=== PATIENT | male | born 1985 | race Hispanic/Latino ===

== ENCOUNTER 2019-09-26 13:00 | Emergency (ER) | payer OTHER ==
[2019-09-26] MEDS ORDERED: KETOROLAC TROMETHAMINE 60 MG/2 ML VIAL ONE (13:33)
[2019-09-26] MEDS ORDERED: CYCLOBENZAPRINE HCL 10 MG TABLET ONE (13:33)
[2019-09-26] MEDS ORDERED: LIDOCAINE 5% TOPICAL PATCH TP ONE (13:38)
== END 2019-09-26 14:42 | disposition home or self-care (01) ==
LOC: EDH 13:00
DX: M62.830 Muscle spasm of back (principal); R05 Cough
CPT/HCPCS: 71046; 96372; 99283; J1885